=== PATIENT | female | born 1985 | race African-American/Black ===

== ENCOUNTER 2016-05-25 13:40 | Emergency (ER) | payer OTHER ==
--- NOTE | 2016-05-25 14:51 | ED CLINICAL REPORT ---
Clinical Report - Physicians/Mid Levels [facility] [address] [place] [address] 05/25/2016 13:41 Patient: SABINO JACINTO Time Seen: 13:58 May 25 2016. Arrived- By private vehicle. Historian- patient. HISTORY OF PRESENT ILLNESS Chief Complaint: SORE THROAT, CHILLS, MUSCLE ACHES and "FLU". This started just prior to arrival and is still present. The illness is described as mild. The patient has had a cough, nasal congestion, chills, muscle aches and a nasal discharge. (patient reports awakening today with a sore throat and muscle aches body aches, chills. Has not had Denies any neck pain, had a headache upon arrival here. No sick contacts. 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 denies emesis or diarrhea. Denies recent antibiotic use.). Additional history - No known contact with a sick individual. No recent travel. REVIEW OF SYSTEMS No headache, vomiting, abdominal pain or pedal edema. All systems otherwise negative, except as recorded above. ADDITIONAL NOTES The nursing notes have been reviewed. PHYSICAL EXAM Vital Signs: 05/25/2016 13:55 BP: 117/72. HR: 77. RR: 18. O2 saturation: 96%. Temp: 98.3 F. Appearance: Alert. Does not appear to be anxious. Eyes: Eyes normal inspection. ENT: Ears normal. Nose normal. Pharynx normal. Uvula midline. No pharyngeal erythema or mouth ulcerations. Neck: Normal inspection. No meningeal signs. CVS: Normal heart rate and rhythm. Heart sounds normal. Respiratory: No respiratory distress. Breath sounds normal. No accessory muscle use, retractions or splinting. Abdomen: Soft and nontender. Neuro: Oriented X 3. LABS, X-RAYS, AND EKG Laboratory Tests: Rapid Influenza Screen: (LYDIA: 05/25/2016 14:10) ( MsgRcvd 05/25/2016 14:34) Final results SPECIMEN DESCRIPTION: NOSE Test Result Flag Units (Reference) RAPID INFLUENZA SCREEN DATE: 05/25/16 INFLUENZA A: NEGATIVE SCREEN FOR INFLUENZA A INFLUENZA B: NEGATIVE SCREEN FOR INFLUENZA B . PROGRESS AND PROCEDURES Course of Care: sudden onset of multiple symptoms, with large and negative exam, no meningeal signs, patient with likely flulike symptoms, despite negative influenza, will treat at this time. She is otherwise stable. To follow up outpatient. Patient is stable. Physical exam findings are improved. Symptoms better. Patient/family counseled. Disposition: Discharged. CLINICAL IMPRESSION Acute viral syndrome INSTRUCTIONS Do not work for three days. Drink plenty of fluids. Prescription Medications: Tylenol with Codeine Tylenol #3 (30 mg / 300 mg) : take 1 tablet orally every 6 hours as needed for pain. Dispense fifteen (15). No refill. Substitution is permissible. Flumadine 100 mg: take 1 tablet orally every 12 hours for 7 days. Dispense fourteen (14). No refills. Substitution is permissible. Tamiflu 75 mg: take 1 capsule orally every 12 hours for 5 days. Dispense ten (10). No refills. Substitution is permissible. Motrin 800 mg tablets: take 1 tablet orally every 8 hours for 3 days, as needed for pain. Dispense ten (10). No refill. Substitution is permissible. Follow-up: Follow up with your doctor in three days. (Electronically signed by Haleigh Gallardo P.A.-C 05/25/2016 15:10)
--- NOTE | 2016-05-25 14:51 | ED CLINICAL REPORT ---
Clinical Report - Physicians/Mid Levels [facility] [address] [place] [address] 05/25/2016 13:41 Patient: SABINO JAICNTO Time Seen: 13:58 May 25 2016. Arrived- By private vehicle. Historian- patient. HISTORY OF PRESENT ILLNESS Chief Complaint: SORE THROAT, CHILLS, MUSCLE ACHES and "FLU". This started just prior to arrival and is still present. The illness is described as mild. The patient has had a cough, nasal congestion, chills, muscle aches and a nasal discharge. (patient reports awakening today with a sore throat and muscle aches body aches, chills. Has not had Denies any neck pain, had a headache upon arrival here. No sick contacts. 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 denies emesis or diarrhea. Denies recent antibiotic use.). Additional history - No known contact with a sick individual. No recent travel. REVIEW OF SYSTEMS No headache, vomiting, abdominal pain or pedal edema. All systems otherwise negative, except as recorded above. ADDITIONAL NOTES The nursing notes have been reviewed. PHYSICAL EXAM Vital Signs: 05/25/2016 13:55 BP: 117/72. HR: 77. RR: 18. O2 saturation: 96%. Temp: 98.3 F. Appearance: Alert. Does not appear to be anxious. Eyes: Eyes normal inspection. ENT: Ears normal. Nose normal. Pharynx normal. Uvula midline. No pharyngeal erythema or mouth ulcerations. Neck: Normal inspection. No meningeal signs. CVS: Normal heart rate and rhythm. Heart sounds normal. Respiratory: No respiratory distress. Breath sounds normal. No accessory muscle use, retractions or splinting. Abdomen: Soft and nontender. Neuro: Oriented X 3. LABS, X-RAYS, AND EKG Laboratory Tests: Rapid Influenza Screen: (LYDIA: 05/25/2016 14:10) ( MsgRcvd 05/25/2016 14:34) Final results SPECIMEN DESCRIPTION: NOSE Test Result Flag Units (Reference) RAPID INFLUENZA SCREEN DATE: 05/25/16 INFLUENZA A: NEGATIVE SCREEN FOR INFLUENZA A INFLUENZA B: NEGATIVE SCREEN FOR INFLUENZA B . PROGRESS AND PROCEDURES Course of Care: sudden onset of multiple symptoms, with large and negative exam, no meningeal signs, patient with likely flulike symptoms, despite negative influenza, will treat at this time. She is otherwise stable. To follow up outpatient. Patient is stable. Physical exam findings are improved. Symptoms better. Patient/family counseled. Disposition: Discharged. CLINICAL IMPRESSION Acute viral syndrome INSTRUCTIONS Do not work for three days. Drink plenty of fluids. Prescription Medications: Tylenol with Codeine Tylenol #3 (30 mg / 300 mg) : take 1 tablet orally every 6 hours as needed for pain. Dispense fifteen (15). No refill. Substitution is permissible. Flumadine 100 mg: take 1 tablet orally every 12 hours for 7 days. Dispense fourteen (14). No refills. Substitution is permissible. Tamiflu 75 mg: take 1 capsule orally every 12 hours for 5 days. Dispense ten (10). No refills. Substitution is permissible. Motrin 800 mg tablets: take 1 tablet orally every 8 hours for 3 days, as needed for pain. Dispense ten (10). No refill. Substitution is permissible. Follow-up: Follow up with your doctor in three days. (Electronically signed by Haleigh Gallardo P.A.-C 05/25/2016 15:10)
--- NOTE | 2016-05-25 14:52 | ED NURSING NOTES ---
Clinical Report - Nurses [facility] [address] [place] [address] 05/25/2016 13:41 Patient: SABINO JACINTO TRIAGE Triage time 13:55 May 25 2016. Acuity: LEVEL 4. Chief Complaint: "FLU", SORE THROAT and BODY ACHES and possible FLU EXPOSURE. Alert. No acute distress. --14: Areli Cunningham R.N. 13:55 05/25/16. BP: 117/72. HR: 77. RR: 18. O2 saturation: 96%. Temp: 98.3 F. Pain level now 0/10. --14: Areli Cunningham R.N. Weight: 77.1 kg stated. Height/Length: 62 inches Per Patient. BMI: 31.1. --14: Areli Cunningham R.N. Medications Albuterol (PRN). --13:55 Areli Cunningham R.N. Lamictal Oral (Tablet 100 mg) 50 mg , q other day. Omeprazole Oral. TraZODone HCl Oral (Tablet 50 mg) 2 tablets, 2x a day as needed. Zoloft Oral 50 mg, q other day. --13:55 Areli Cunningham R.N. Medication/allergy information source: the patient. --14: Areli Cunningham R.N. Allergies NKDA. --13:55 Areli Cunningham R.N. History Arrived by private vehicle. Historian: patient. Primary physician (Dr. Santana). ( Woke up sick today with muscle aches and sore throat. No fever. 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 This started just prior to arrival. No recent travel. 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 PAST MEDICAL HX: Last normal menstrual period- was on Depo, stopped hasn't had a period in months. Has not received seasonal influenza immunization. SOCIAL HX: Never smoker. Occasional alcohol use; consumes wine. No recent travel. No infectious disease exposure. NUTRITIONAL RISK ASSESSMENT: The nutritional risk assessment revealed no deficiencies. FUNCTIONAL ASSESSMENT: Functional assessment: no impairments noted. LEARNING NEEDS ASSESSMENT: The learning needs assessment revealed no barriers. SKIN INTEGRITY ASSESSMENT: Skin integrity risk assessment completed. No skin integrity risk identified. --14:01 Areli Cunningham R.N. PROBLEMS: Viral Disease. Strep Throat. URI. Pharyngitis. Dental Abscess. Immunizations. Dental Pain. Sleep Apnea. Dental Caries. Abscess. LNMP - Last Normal Menstrual Period. Bipolar Disorder. Depression. --13:57 Areli Cunningham R.N. Interventions ID band on patient. To room. --14:01 Areli Cunningham R.N. PHYSICAL ASSESSMENT Ambulatory to room. GENERAL / NEURO / PSYCH: Oriented X 4. Appears in no acute distress. RESPIRATORY: Respirations not labored. CVS: Capillary refill less than 2 seconds. SKIN: Skin is warm and dry. --14:02 Areli Cunningham R.N. NURSING PROGRESS NOTES ( Pt has been seen by the PA.). --14:02 Areli Cunningham R.N. Flu swab obtained by RN via nasal swab. Labeled in the presence of the patient and sent to lab. --14:16 Areli Cunningham R.N. 15:05. The patient is calm and resting quietly. Overall patient status is the same- she states feels the same. RESPIRATORY: No respiratory distress. SKIN: Skin is warm and dry. --19:48 Glo Cee R.N. DISPOSITION / DISCHARGE Departure time: 1505. Condition at departure: stable. No learning barriers present. Discharge instructions provided and reviewed with the patient. Reviewed medication(s). Prescription(s) given to the patient. Patient verbalized understanding. Written instructions provided in Irish. The patient was discharged home and unaccompanied at time of discharge. She left the Emergency Department ambulatory and via private vehicle. FALL RISK ASSESSMENT: Fall risk assessment completed. No fall risk identified. --15:07 Glo Cee R.N. 15:02 05/25/16. BP: 122/76. HR: 74. RR: 18. O2 saturation: 98% on room air. Temp: 98.5 F. Pain level now: 07/24. --15:07 Glo Cee R.N. Locked/Released at 05/25/2016 19:49 by Glo Cee R.N.
--- NOTE | 2016-05-25 14:52 | ED ORDER SUMMARY ---
..... Patient: SABINO JACINTO OrderSheet [facility] VisitID: [id number] [place] [address] 30y, F Registration Date/Time: 05/25/2016 ORDER SHEET Weight: 77.1 kg (stated) Allergies: NKDA GENERAL ORDERS: Rapid Influenza Screen (Nasal Pharyngeal) (nose) Urgent (14:16 05/25/2016 Mario Talavera verbal order read back to Terrance Fuentes) (Ack 14:20 [facility]ouse ER Tech1) (14:20 NHouse ER Tech1) MEDICATION ORDERS: IV FLUIDS: ORDER SHEET NOTES: [Electronically signed by Haleigh Gallardo P.A.-C (15:10 05/25/2016)] [Electronically signed by Glo Cee R.N. (19:49 05/25/2016)] [Electronically locked/signed by Glo Cee R.N. (19:49 05/25/2016)]
--- NOTE | 2016-05-25 14:52 | ED NURSING NOTES ---
Clinical Report - Nurses [facility] [address] [place] [place] [address] 05/25/2016 13:41 Patient: SABINO JACINTO TRIAGE Triage time 13:55 May 25 2016. Acuity: LEVEL 4. Chief Complaint: "FLU", SORE THROAT and BODY ACHES and possible FLU EXPOSURE. Alert. No acute distress. --14: Areli Cunningham R.N. 13:55 05/25/16. BP: 117/72. HR: 77. RR: 18. O2 saturation: 96%. Temp: 98.3 F. Pain level now 0/10. --14: Areli Cunningham R.N. Weight: 77.1 kg stated. Height/Length: 62 inches Per Patient. BMI: 31.1. --14: Areli Cunningham R.N. Medications Albuterol (PRN). --13:55 Areli Cunningham R.N. Lamictal Oral (Tablet 100 mg) 50 mg , q other day. Omeprazole Oral. TraZODone HCl Oral (Tablet 50 mg) 2 tablets, 2x a day as needed. Zoloft Oral 50 mg, q other day. --13:55 Areli Cunningham R.N. Medication/allergy information source: the patient. --14: Areli Cunningham R.N. Allergies NKDA. --13:55 Areli Cunningham R.N. History Arrived by private vehicle. Historian: patient. Primary physician (Dr. Santana). ( Woke up sick today with muscle aches and sore throat. No fever. 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 This started just prior to arrival. No recent travel. 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 PAST MEDICAL HX: Last normal menstrual period- was on Depo, stopped hasn't had a period in months. Has not received seasonal influenza immunization. SOCIAL HX: Never smoker. Occasional alcohol use; consumes wine. No recent travel. No infectious disease exposure. NUTRITIONAL RISK ASSESSMENT: The nutritional risk assessment revealed no deficiencies. FUNCTIONAL ASSESSMENT: Functional assessment: no impairments noted. LEARNING NEEDS ASSESSMENT: The learning needs assessment revealed no barriers. SKIN INTEGRITY ASSESSMENT: Skin integrity risk assessment completed. No skin integrity risk identified. --14:01 Areli Cunningham R.N. PROBLEMS: Viral Disease. Strep Throat. URI. Pharyngitis. Dental Abscess. Immunizations. Dental Pain. Sleep Apnea. Dental Caries. Abscess. LNMP - Last Normal Menstrual Period. Bipolar Disorder. Depression. --13:57 Areli Cunningham R.N. Interventions ID band on patient. To room. --14:01 Areli Cunningham R.N. PHYSICAL ASSESSMENT Ambulatory to room. GENERAL / NEURO / PSYCH: Oriented X 4. Appears in no acute distress. RESPIRATORY: Respirations not labored. CVS: Capillary refill less than 2 seconds. SKIN: Skin is warm and dry. --14:02 Areli Cunningham R.N. NURSING PROGRESS NOTES ( Pt has been seen by the PA.). --14:02 Areli Cunningham R.N. Flu swab obtained by RN via nasal swab. Labeled in the presence of the patient and sent to lab. --14:16 Areli Cunningham R.N. 15:05. The patient is calm and resting quietly. Overall patient status is the same- she states feels the same. RESPIRATORY: No respiratory distress. SKIN: Skin is warm and dry. --19:48 Glo Cee R.N. DISPOSITION / DISCHARGE Departure time: 1505. Condition at departure: stable. No learning barriers present. Discharge instructions provided and reviewed with the patient. Reviewed medication(s). Prescription(s) given to the patient. Patient verbalized understanding. Written instructions provided in Latvian. The patient was discharged home and unaccompanied at time of discharge. She left the Emergency Department ambulatory and via private vehicle. FALL RISK ASSESSMENT: Fall risk assessment completed. No fall risk identified. --15:07 Glo Cee R.N. 15:02 05/25/16. BP: 122/76. HR: 74. RR: 18. O2 saturation: 98% on room air. Temp: 98.5 F. Pain level now: 07/24. --15:07 Glo Cee R.N. Locked/Released at 05/25/2016 19:49 by Glo Cee R.N.
--- NOTE | 2016-05-25 14:52 | ED ORDER SUMMARY ---
..... Patient: SABINO JACINTO OrderSheet [facility] VisitID: [id number] [place] [address] 30y, F Registration Date/Time: 05/25/2016 ORDER SHEET Weight: 77.1 kg (stated) Allergies: NKDA GENERAL ORDERS: Rapid Influenza Screen (Nasal Pharyngeal) (nose) Urgent (14:16 05/25/2016 Mario Talavera verbal order read back to Terrance Fuentes) (Ack 14:20 [facility]ouse ER Tech1) (14:20 NHouse ER Tech1) MEDICATION ORDERS: IV FLUIDS: ORDER SHEET NOTES: [Electronically signed by Haleigh Gallardo P.A.-C (15:10 05/25/2016)] [Electronically signed by Glo Cee R.N. (19:49 05/25/2016)] [Electronically locked/signed by Glo Cee R.N. (19:49 05/25/2016)]
--- NOTE | 2016-05-25 19:49 | ED MED RECONCILIATION SUMMARY ---
Patient: SABINO JACINTO Medication Reconciliation Report [facility] VisitID: [id number] [place] [address] 30y, F Registration Date/Time: 05/25/2016 Weight: 77.1 kg Height/Length: 62 in. BMI: 31.1 ALLERGIES: NKDA The patient's Home Medications are listed below: THE FOLLOWING MEDICATIONS NEED TO BE RECONCILED: Albuterol, PRN Lamictal Oral (100 mg) 50 mg , q other day Omeprazole Oral TraZODone HCl Oral (50 mg) 2 tablets, 2x a day Zoloft Oral 50 mg, q other day The source(s) of the original Home Medication information: patient The following Medications were given to the patient in the Emergency Department: None. The following Medications were prescribed to the patient: Tylenol with Codeine Tylenol #3 (30 mg / 300 mg) : take 1 tablet orally every 6 hours as needed for pain. Dispense fifteen (15). No refill. Substitution is permissible. -- Haleigh Gallardo, P.A.-C Flumadine 100 mg: take 1 tablet orally every 12 hours for 7 days. Dispense fourteen (14). No refills. Substitution is permissible. -- Haleigh Gallardo, P.A.-C Tamiflu 75 mg: take 1 capsule orally every 12 hours for 5 days. Dispense ten (10). No refills. Substitution is permissible. -- Haleigh Gallardo, P.A.-C Motrin 800 mg tablets: take 1 tablet orally every 8 hours for 3 days, as needed for pain. Dispense ten (10). No refill. Substitution is permissible. -- Haleigh Gallardo, P.A.-C
--- NOTE | 2016-05-25 19:49 | ED MAR SUMMARY ---
..... Medication Administration Record [facility] [address] [place], [place] [id number] Patient: SABINO JACINTO Jess Visit ID: [id number] 30y, F Weight: 77.1 kg Height/Length: 62 in BMI: 31.1 ALLERGIES: NKDA
--- NOTE | 2016-05-25 19:49 | ED MAR SUMMARY ---
..... Medication Administration Record [facility] [address] [place] [id number] Patient: SABINO JACINTO Jess Visit ID: [id number] 30y, F Weight: 77.1 kg Height/Length: 62 in BMI: 31.1 ALLERGIES: NKDA
--- NOTE | 2016-05-25 19:49 | ED DISCHARGE INSTRUCTIONS ---
Patient: SABINO JACINTO General Instructions [facility] VisitID: [id number] [place] [address] 30y, F Registration Date/Time: 05/25/2016 Acute viral syndrome INSTRUCTIONS Do not work for three days. Drink plenty of fluids. Prescription Medications: Tylenol with Codeine Tylenol #3 (30 mg / 300 mg) : take 1 tablet orally every 6 hours as needed for pain. Dispense fifteen (15). No refill. Substitution is permissible. Flumadine 100 mg: take 1 tablet orally every 12 hours for 7 days. Dispense fourteen (14). No refills. Substitution is permissible. Tamiflu 75 mg: take 1 capsule orally every 12 hours for 5 days. Dispense ten (10). No refills. Substitution is permissible. Motrin 800 mg tablets: take 1 tablet orally every 8 hours for 3 days, as needed for pain. Dispense ten (10). No refill. Substitution is permissible. Follow-up: Follow up with your doctor in three days. ADDITIONAL INFORMATION Viral Syndrome (Adult) A viral illness may cause a number of symptoms. The symptoms depend on the part of the body that the virus affects. If it settles in the nose, throat, and lungs, it may cause cough, sore throat, congestion, and sometimes headache. If it settles in the stomach and intestinal tract, it may cause vomiting and diarrhea. Sometimes it causes vague symptoms like "aching all over," feeling tired, loss of appetite, or fever. A viral illness usually lasts1 to 2 weeks, but sometimes it lasts longer. In some cases, a more serious infection can look like a viral syndrome in the first few days of the illness. You may need anotherexam and additional teststo know the difference.Watch for the warning signs listed below. Home care Follow these guidelines for taking care of yourself at home: If symptoms are severe, rest at home for the first 2 to 3 days. Stay away from cigarette smoke - both your smoke and the smoke from others. You may useacetaminophen or ibuprofen for fever, muscle aching, and headache, unless another medicine was prescribed for this.If you have chronic liver or kidney disease or ever had a stomach ulcer or GI bleeding, talk with your doctor before using these medicinesNo one who is younger than 18 and ill with a fever should take aspirin. It may cause severe liver damage. Your appetite may be poor, so a light diet is fine. Avoid dehydration by drinking 8 to 12 8-ounce glasses of fluids each day. This may include water; orange juice; lemonade; apple, grape, and cranberry juice; clear fruit drinks; electrolyte replacement and sports drinks; and decaffeinated teas and coffee. If you have been diagnosed with a kidney disease, ask your doctor how much and what types of fluids you should drink to prevent dehydration. If you have kidney disease, drinking too much fluid can cause it build up in the your body and be dangerous to your health. Xsny-iud-dqnkjum remedies won't shorten the length of the illness but may be helpful forcough, sore throat; and nasal and sinus congestion. Don't use decongestants if you have high blood pressure. Follow-up care Follow up with your health care provider if you do not improve over the next week. When to seek medical care Get prompt medical attention if any of these occur: Cough with lots of colored sputum (mucus) or blood in your sputum Chest pain, shortness of breath, wheezing, or difficulty breathing Severe headache; face, neck, or ear pain Severe, constant pain in the lower right side of your belly (abdominal) Continued vomiting (cant keep liquids down) Frequent diarrhea (more than 5 times a day); blood (red or black color) or mucus in diarrhea Feeling weak, dizzy, or like you are going to faint Extreme thirst Fever of 100.4 F (38 C) oral or higher, not better with fever medication Convulsion Acetaminophen, Codeine Phosphate Oral tablet What is this medicine? ACETAMINOPHEN; CODEINE (a set a HUMBERTO tanner fen; RANDA guadarrama) is a pain reliever. It is used to treat mild to moderate pain. How should I use this medicine? Take this medicine by mouth with a full glass of water. Follow the directions on the prescription label. If the medicine upsets your stomach, take the medicine with food or milk. Do not take more medicine than you are told to take. Talk to your core manager regarding the use of this medicine in children. Special care may be needed. What side effects may I notice from receiving this medicine? Side effects that you should report to your doctor or health patient care representative as soon as possible: allergic reactions like skin rash, itching or hives, swelling of the face, lips, or tongue breathing difficulties, wheezing confusion light headedness or fainting spells severe stomach pain yellowing of the skin or the whites of the eyes Side effects that usually do not require medical attention (report to your doctor or health patient care representative if they continue or are bothersome): dizziness drowsiness nausea, vomiting What may interact with this medicine? alcohol antihistamines benztropine drugs for bladder problems like solifenacin, trospium, oxybutynin, tolterodine, hycosamine, and methscopolamine drugs for breathing problems like ipratropium and tiotropium drugs for certain stomach or intestine problems like propantheline, homatropine methylbromide, glycopyrrolate, atropine, belladonna, and dicyclomine medicines for depression, anxiety, or psychotic disturbances medicines for sleep muscle relaxants naltrexone narcotic medicines (opiates) for pain phenothiazines like perphenazine, thioridazine, chlorpromazine, mesoridazine, fluphenazine, prochlorperazine, promazine, trifluoperazine scopolamine tramadol trihexyphenidyl What if I miss a dose? If you miss a dose, take it as soon as you can. If it is almost time for your next dose, take only that dose. Do not take double or extra doses. Where should I keep my medicine? Keep out of the reach of children. This medicine can be abused. Keep your medicine in a safe place to protect it from theft. Do not share this medicine with anyone. Selling or giving away this medicine is dangerous and against the law. Store at room temperature between 15 and 30 degrees C (59 and 86 degrees F). Protect from light. Keep container tightly closed. Throw away any unused medicine after the expiration date. Discard unused medicine and used packaging carefully. Pets and children can be harmed if they find used or lost packages. What should I tell my health care provider before I take this medicine? They need to know if you have any of these conditions: brain tumor Crohn's disease, inflammatory bowel disease, or ulcerative colitis drink more than 3 alcohol containing drinks per day drug abuse or addiction head injury heart or circulation problems kidney disease or problems going to the bathroom liver disease lung disease, asthma, or breathing problems an unusual or allergic reaction to acetaminophen, codeine, salicylates, other opioid analgesics, other medicines, foods, dyes, or preservatives or trying to get breast-feeding What should I watch for while using this medicine? Tell your doctor or health patient care representative if your pain does not go away, if it gets worse, or if you have new or a different type of pain. You may develop tolerance to the medication. Tolerance means that you will need a higher dose of the medication for pain relief. Tolerance is normal and is expected if you take the medicine for a long time. Do not suddenly stop taking your medicine because you may develop a severe reaction. Your body becomes used to the medicine. This does NOT mean you are addicted. Addiction is a behavior related to getting and using a drug for a non medical reason. If you have pain, you have a medical reason to take pain medicine. Your doctor will tell you how much medicine to take. If your doctor wants you to stop the medicine, the dose will be slowly lowered over time to avoid any side effects. You may get drowsy or dizzy. Do not drive, use machinery, or do anything that needs mental alertness until you know how this medicine affects you. Do not stand or sit up quickly, especially if you are an older patient. This reduces the risk of dizzy or fainting spells. Alcohol may interfere with the effect of this medicine. Avoid alcoholic drinks. There are different types of narcotic medicines (opiates) for pain. If you take more than one type at the same time, you may have more side effects. Give your health care provider a list of all medicines you use. Your doctor will tell you how much medicine to take. Do not take more medicine than directed. Call emergency for help if you have problems breathing. The medicine will cause constipation. Try to have a bowel movement at least every 2 to 3 days. If you do not have a bowel movement for 3 days, call your doctor or health patient care representative. Do not take Tylenol (acetaminophen) or medicines that have acetaminophen with this medicine. Too much acetaminophen can be very dangerous. Many nonprescription medicines contain acetaminophen. Always read the labels carefully to avoid taking more acetaminophen. Immediately call your physician or get emergency help if you are breast-feeding and your baby is sleepier than usual, is limp, or has difficulty or breathing. Ibuprofen Oral tablet What is this medicine? IBUPROFEN (eye BYOO proe fen) is a non-steroidal anti-inflammatory drug (NSAID). It is used for dental pain, fever, headaches or migraines, osteoarthritis, rheumatoid arthritis, or painful monthly periods. It can also relieve minor aches and pains caused by a cold, flu, or sore throat. How should I use this medicine? Take this medicine by mouth with a glass of water. Follow the directions on the prescription label. Take this medicine with food if your stomach gets upset. Try to not lie down for at least 10 minutes after you take the medicine. Take your medicine at regular intervals. Do not take your medicine more often than directed. A special MedGuide will be given to you by the pharmacist with each prescription and refill. Be sure to read this information carefully each time. Talk to your core manager regarding the use of this medicine in children. Special care may be needed. What side effects may I notice from receiving this medicine? Side effects that you should report to your doctor or health patient care representative as soon as possible: allergic reactions like skin rash, itching or hives, swelling of the face, lips, or tongue black or bloody stools, blood in the urine or in vomit breathing problems changes in vision chest pain general ill feeling or flu-like symptoms nausea or vomiting redness, blistering, peeling or loosening of the skin, including inside the mouth slurred speech or weakness on one side of the body stomach pain unexplained weight gain or swelling unusually weak or tired yellowing of eyes or skin Side effects that usually do not require medical attention (report to your doctor or health patient care representative if they continue or are bothersome): constipation or diarrhea dizziness gas or heartburn stomach upset What may interact with this medicine? Do not take this medicine with any of the following medications: cidofovir ketorolac methotrexate pemetrexed This medicine may also interact with the following medications: alcohol aspirin diuretics lithium other drugs for inflammation like prednisone warfarin What if I miss a dose? If you miss a dose, take it as soon as you can. If it is almost time for your next dose, take only that dose. Do not take double or extra doses. Where should I keep my medicine? Keep out of the reach of children. Store at room temperature between 15 and 30 degrees C (59 and 86 degrees F). Keep container tightly closed. Throw away any unused medicine after the expiration date. What should I tell my health care provider before I take this medicine? They need to know if you have any of these conditions: asthma cigarette smoker drink more than 3 alcohol containing drinks a day heart disease or circulation problems such as heart failure or leg edema (fluid retention) high blood pressure kidney disease liver disease stomach bleeding or ulcers an unusual or allergic reaction to ibuprofen, aspirin, other NSAIDS, other medicines, foods, dyes, or preservatives or trying to get breast-feeding What should I watch for while using this medicine? Tell your doctor or healthcare professional if your symptoms do not start to get better or if they get worse. This medicine does not prevent heart attack or stroke. In fact, this medicine may increase the chance of a heart attack or stroke. The chance may increase with longer use of this medicine and in people who have heart disease. If you take aspirin to prevent heart attack or stroke, talk with your doctor or health patient care representative. Do not take other medicines that contain aspirin, ibuprofen, or naproxen with this medicine. Side effects such as stomach upset, nausea, or ulcers may be more likely to occur. Many medicines available without a prescription should not be taken with this medicine. This medicine can cause ulcers and bleeding in the stomach and intestines at any time during treatment. Ulcers and bleeding can happen without warning symptoms and can cause . To reduce your risk, do not smoke cigarettes or drink alcohol while you are taking this medicine. You may get drowsy or dizzy. Do not drive, use machinery, or do anything that needs mental alertness until you know how this medicine affects you. Do not stand or sit up quickly, especially if you are an older patient. This reduces the risk of dizzy or fainting spells. This medicine can cause you to bleed more easily. Try to avoid damage to your teeth and gums when you brush or floss your teeth. You have been given the following additional information: Viral Syndrome (Adult) Acetaminophen, Codeine Phosphate Oral tablet Ibuprofen Oral tablet Do not work for three days. (Electronically signed by Haleigh Gallardo P.A.-C 05/25/2016 15:10)
--- NOTE | 2016-05-25 19:49 | ED MED RECONCILIATION SUMMARY ---
Patient: SABINO JACINTO Medication Reconciliation Report [facility] VisitID: [id number] [place] [address] 30y, F Registration Date/Time: 05/25/2016 Weight: 77.1 kg Height/Length: 62 in. BMI: 31.1 ALLERGIES: NKDA The patient's Home Medications are listed below: THE FOLLOWING MEDICATIONS NEED TO BE RECONCILED: Albuterol, PRN Lamictal Oral (100 mg) 50 mg , q other day Omeprazole Oral TraZODone HCl Oral (50 mg) 2 tablets, 2x a day Zoloft Oral 50 mg, q other day The source(s) of the original Home Medication information: patient The following Medications were given to the patient in the Emergency Department: None. The following Medications were prescribed to the patient: Tylenol with Codeine Tylenol #3 (30 mg / 300 mg) : take 1 tablet orally every 6 hours as needed for pain. Dispense fifteen (15). No refill. Substitution is permissible. -- Haleigh Gallardo, P.A.-C Flumadine 100 mg: take 1 tablet orally every 12 hours for 7 days. Dispense fourteen (14). No refills. Substitution is permissible. -- Haleigh Gallardo, P.A.-C Tamiflu 75 mg: take 1 capsule orally every 12 hours for 5 days. Dispense ten (10). No refills. Substitution is permissible. -- Haleigh Gallardo, P.A.-C Motrin 800 mg tablets: take 1 tablet orally every 8 hours for 3 days, as needed for pain. Dispense ten (10). No refill. Substitution is permissible. -- Haleigh Gallardo, P.A.-C
== END 2016-05-25 15:05 | disposition home or self-care (01) ==
LOC: ED SRH 13:40
DX: B34.9 Viral infection, unspecified (principal); F31.9 Bipolar disorder, unspecified; Z79.899 Other long term (current) drug therapy
CPT/HCPCS: 91400